=== PATIENT | female | born 1985 | race Caucasian/White ===

== ENCOUNTER → 2018-07-31 | Outpatient (CLI) | payer OTHER | LOC: SUN.DIA 11:47 | DX: O24.419 Gestational diabetes mellitus in pregnancy, unspecified control (principal); Z71.3 Dietary counseling and surveillance | CPT/HCPCS: G0108 ==

== ENCOUNTER → 2018-08-14 | Outpatient (CLI) | payer OTHER | LOC: SUN.DIA 08:56 | DX: O24.419 Gestational diabetes mellitus in pregnancy, unspecified control (principal); Z3A.32 32 weeks gestation of pregnancy | CPT/HCPCS: G0108 ==

== ENCOUNTER 2018-09-14 12:07 | Outpatient (CLI) | payer OTHER ==
[~2018-09-14] VITALS: Ht 157.5 cm; Wt 94.1 kg
[2018-09-14] VITALS (7 sets, daily range): BP systolic 120–138; BP diastolic 63–92; PULSE 78–103; TEMP 98.3
--- NOTE | 2018-09-14 12:30 | NUR ---
Patient ambulatory to L[facility]5 with with c/o increased blood pressures at home. She is a G1 at 36.3 weeks gestation who is GDM. She states that her blood sugars have been well controlled with diet and that she is no longer required to check her blood sugar. She denies leaking of fluid or vaginal bleeding and states that baby has been active. Patient changed into gown, wedged left. EFMs explained and applied. FHR 130 bpm with minimal variability, FHR difficult to trace and this nurse remains at bedside adjusting EFM. No CTX per toco or patient reports. Blood pressure: 138/92, with a repeat BP: 127/69. Patient denies headache or visual disturbances. Mild swelling noted to BLE. Plan of care reviewed. Dr. Donnelly on unit and updated.
[2018-09-14] MEDS ORDERED: LEXAPRO 10MG10 MG PO (12:49)
[2018-09-14] MEDS ORDERED: LEVOXYL0.112 MG PO (12:49)
[2018-09-14] MEDS ORDERED: ZANTAC 7575 MG PO (12:49)
[2018-09-14] MEDS ORDERED: NIFEREX TABLET1 EACH PO (12:50)
[2018-09-14] MEDS ORDERED: PRENATAL (12:50)
[2018-09-14 13:08] LABS: BASO % 0.2 % (0.0-2.0); EOS # 0.2 (0.0-0.7); EOS % 1.6 % (0-4.0); GRAN # 6.7 (1.4-6.5); GRAN % 72.8 % (42.2-75.2); HEMOGLOBIN 10.4 g/dl (12.5-16.0); LYMPH # 1.7 (1.2-3.4); LYMPH % 18.2 % (20.0-51.0); MEAN CELL VOLUME 83 fl (80.0-100.0); MEAN CORPUSCULAR HEMOGLOBIN 27 pg (27.0-31.0); MEAN CORPUSCULAR HGB CONC 33 g/dl (33.0-37.0); MEAN PLATELET VOLUME 11.4 fl (7.4-10.4); MONO # 0.6 (0.1-0.6); MONO % 6.2 % (1.7-9.3); PLATELET COUNT 203 K/mm3 (130-400); RED BLOOD COUNT 3.86 M/mm3 (4.10-5.30); REDCELL DISTRIBUTION WIDTH-CV 14.7 % (11.5-14.5)
[2018-09-14 13:18] LABS: ALANINE AMINOTRANSFERASE < 6 U/L (9-52); ALBUMIN 3.2 gm/dL (3.5-5.0); ALKALINE PHOSPHATASE 171 U/L (50-136); ANION GAP 8 mmol/L (7-16); AST,SGOT 17 U/L (15-37); BILIRUBIN,TOTAL 0.2 mg/dL (0.0-1.0); BLOOD UREA NITROGEN 10 mg/dL (7-17); CALCIUM 9.1 mg/dL (8.4-10.2); CARBON DIOXIDE 21 mmol/L (22-30); CHLORIDE 107 mmol/L (98-107); CREATININE, serum 0.53 (0.52-1.25); GLUCOSE 85 mg/dL (74-106); POTASSIUM 4.2 mmol/L (3.4-5.0); SODIUM 135 mmol/L (137-145); TOTAL PROTEIN 6.4 gm/dL (6.4-8.2)
--- NOTE | 2018-09-14 14:30 | NUR ---
1410 blood pressures WNL. NST reactive. Dr. Donnelly called and updated and orders to discharge home given. 1420 Discharge instructions reviewed with patient and spouse, including scheduled for this , September 19. Questions answered. 1430 Patient discharged home.
== END 2018-09-14 14:30 | disposition home or self-care (01) ==
LOC: LDRO 12:07 → LDR 12:40 → LDRO 14:30 → LDR 14:30
PROVIDERS: Obstetrics & Gynecology
DX: O13.3 Gestational [pregnancy-induced] hypertension without significant proteinuria, third trimester (principal); Z3A.36 36 weeks gestation of pregnancy
CPT/HCPCS: OP

== ENCOUNTER 2018-09-19 05:26 | Inpatient (IN) | payer OTHER ==
[~2018-09-19] VITALS: Ht 156.2 cm; Wt 95.5 kg
[2018-09-19] VITALS (17 sets, daily range): BP systolic 108–150; BP diastolic 65–87; PULSE 77–98; TEMP 97.5–98.3
[~2018-09-19 05:26] MED LIST: LEVOXYL0.112 MG PO; LEXAPRO 10MG10 MG PO; NIFEREX TABLET1 EACH PO; PRENATAL; ZANTAC 7575 MG PO
--- NOTE | 2018-09-19 06:00 | NUR ---
0578- Patient ambulatory to 209 with and electroencephalograph technician. Patient and oriented to room. Patient into restroom to change into gown. Patient back into bed. EFM and TOCO on and tracing. Patient denies LOF, bleeding, or spotting. Patient denies contractions. IV started. LR fluid bolus infusing into RH. Labs drawn and sent. Consents signed. Questions asked and answered. 0615- Report given to CRISTOBAL Francois.
[2018-09-19 06:30] LABS: BASO % 0.4 % (0.0-2.0); EOS # 0.1 (0.0-0.7); EOS % 1.8 % (0-4.0); GRAN # 5.2 (1.4-6.5); GRAN % 65.5 % (42.2-75.2); HEMOGLOBIN 10.9 g/dl (12.5-16.0); LYMPH % 25.7 % (20.0-51.0); MEAN CELL VOLUME 83 fl (80.0-100.0); MEAN CORPUSCULAR HEMOGLOBIN 27 pg (27.0-31.0); MEAN CORPUSCULAR HGB CONC 32 g/dl (33.0-37.0); MEAN PLATELET VOLUME 11.9 fl (7.4-10.4); MONO # 0.5 (0.1-0.6); MONO % 5.8 % (1.7-9.3); PLATELET COUNT 219 K/mm3 (130-400); RED BLOOD COUNT 4.04 M/mm3 (4.10-5.30); REDCELL DISTRIBUTION WIDTH-CV 14.7 % (11.5-14.5)
[2018-09-19 06:34] LABS: HEMATOCRIT 33.7 % (37.0-47.0)
--- NOTE | 2018-09-19 07:20 | NUR ---
Patient ambulatory to OR at this time.
--- NOTE | 2018-09-19 08:30 | NUR ---
Patient into PACU via bed. This RN remains at bedside.
--- NOTE | 2018-09-19 09:00 | NUR ---
Patient to Room 209. Plan of care discussed, questions answered. Juice and crackers provided. Denies pain or nausea at this time. Call light within reach.
--- NOTE | 2018-09-19 11:05 | NUR ---
LC to room to assist , staff nurse states baby eager but not getting nipple pulled into mouth. LC notes pt's right nipple inverts with compression of areola when trying to get more breast into his mouth. Nipple shield placed because of inversion and infant being eager. continues to have good effort but still only takes the initial burst of sucks then pulls off. remains on pt's chest [id number], with his mouth over the nipple, more kissing from time to time. Discussed frequency of feedings and typical lenght of feedings. Pt getting tired and pain increasing, anticipate follow up at another opportunity. Family at bedside during teaching.
--- NOTE | 2018-09-19 14:30 | NUR ---
Patient up to bathroom without difficulty. Hernandez catheter discontinued. Pericare performed. Underwear and peripad in place. Patient puts own robe on. Need for 3 measured voids and normal lochia parameters discussed. Patient to nursery via wheelchair to visit infant.
[2018-09-20 02:45] VITALS: BP 144/80; PULSE 109; TEMP 98.1
[2018-09-20 08:15] VITALS: BP 151/92; PULSE 115; TEMP 98
--- NOTE | 2018-09-20 10:26 | NUR ---
Initial visit; Parents thanked Studio Data Analyst for offering congratulations and God's blessings for the of their son. Studio Data Analyst thanked family for choosing [facility].
[2018-09-20 16:45] VITALS: BP 135/70; PULSE 104; TEMP 97.6
[2018-09-20 21:50] VITALS: BP 130/70; PULSE 100; TEMP 98.2
[2018-09-21 07:30] VITALS: BP 144/77; PULSE 99; TEMP 97.3
[2018-09-21 16:00] VITALS: BP 137/80; PULSE 91; TEMP 97.9
[2018-09-21 19:30] VITALS: BP 133/66; PULSE 93; TEMP 97.8
[2018-09-22 07:25] VITALS: BP 142/92; PULSE 88; TEMP 98.1
[2018-09-22] MEDS ORDERED: MOTRIN 800800 MG/TAB PO (08:51)
[2018-09-22] MEDS ORDERED: PERCOCET 325 MG1 TA2 PO (08:52)
== END 2018-09-22 11:25 | disposition home or self-care (01) | DRG 787 ==
LOC: OB 05:26 → LDR 06:45 → OB 09-22 11:25
PROVIDERS: ADMIT Obstetrics & Gynecology
PROC: 10D00Z1 Extraction of Products of Conception, Low, Open Approach (ICD-10-PCS; principal; 2018-09-19)
DX: O14.94 Unspecified pre-eclampsia, complicating childbirth (principal); O33.0 Maternal care for disproportion due to deformity of maternal pelvic bones; Z3A.37 37 weeks gestation of pregnancy; Z37.0 Single live birth; O99.284 Endocrine, nutritional and metabolic diseases complicating childbirth; E03.9 Hypothyroidism, unspecified; O99.62 Diseases of the digestive system complicating childbirth; K21.9 Gastro-esophageal reflux disease without esophagitis; O24.420 Gestational diabetes mellitus in childbirth, diet controlled; Z87.891 Personal history of nicotine dependence; O36.63X0 Maternal care for excessive fetal growth, third trimester, not applicable or unspecified
CPT/HCPCS: J0690; J1885; J2270; J2370; J2405; J2590; J7120

== ENCOUNTER → 2018-09-26 | Outpatient (CLI) | payer OTHER ==
[~2018-09-26] MED LIST changes: +MOTRIN 800800 MG/TAB PO; +PERCOCET 325 MG1 TA2 PO
--- NOTE | 2018-09-26 14:43 | NUR ---
Pt, Juliane Costa presents for outpatient consult with one week old baby boy, Kenny Costa. She is accompanied by her mother. Kenny was born by c/section at 37 weeks gestation because of pt's elevated blood pressure. His weight was 8#7.5oz (3840 gms). Discharge weight was 7#12oz (3515 gms). This LC worked with this couplet during their hospital stay. Kenny had latch difficulty and has been using a nipple shield. SNS was used during the hospital stay as well. Today Kenny weighs 7#9.8oz (3454 gms), for a loss of 10% from . Pt reports this is less than yesterday in Dr. Ledbetter's office. Pt reports 5 feedings in the last 24 hours, stating she has difficulty waking him for feedings and ends up with 5 hours between feedings. He has received about 3oz EBM/formula supplement in the last 24 hours, and has had 2-3 BMs and 6 voids in the same time frame. Pt does not pump regularly. Pt and LC attempt to latch Kenny without the nipple shield, but he does not latch well. After nursing bilaterally with the nipple shield he has a total gain of 18 gms. He is supplemented with 2oz formula by bottle and tolerates it well. POC: 3-step feeding plan with offering the breast each feeding, limit time to active nursing. Supplement 2-3 oz EBM or formula after, pump after each feeding x15 minutes. Pt verbalizes understanding of 3-step plan, and to feed at 3 hours by bottle if she cannot get him to wake well enough to breastfeed to ensure at least 8 feedings daily. Pt also provided handouts with additional suggestions to increase milks supply. F/U: One week with this LC. Pt verbalizes understanding of feeding plan, questions invited and answered.
== END ==
LOC: LAC 12:53
DX: Z39.1 Encounter for care and examination of lactating mother (principal); Z71.89 Other specified counseling

== ENCOUNTER 2020-05-24 12:42 | Outpatient (CLI) | payer OTHER ==
[~2020-05-24] VITALS: Ht 157.5 cm; Wt 89.5 kg
--- NOTE | 2020-05-24 12:10 | NUR ---
Patient arrives ambulatory with spouse with concerns of possible SROM at 0915. Patient denies contractions or vaginal bleeding and reports normal movement. Patient changes into gown, EFM explained and placed. Amniotrace negative. SVE closed/thick/high and no fluid noted on exam. Patient repositioned WL. VSS. Assessment completed by Nika Gregg RN. See physician notification.
[2020-05-24 12:19] VITALS: BP 115/74; PULSE 96; TEMP 98.1
--- NOTE | 2020-05-24 12:46 | NUR ---
Patient denies contractions or cramping.
[2020-05-24 12:50] VITALS: BP 115/74; PULSE 96; TEMP 98.2
--- NOTE | 2020-05-24 13:01 | NUR ---
1300- Patient given discharge instructions. Reviewed labor precautions and kick counts. Denies questions. Leaves ambulatory with spouse.
== END 2020-05-24 13:00 | disposition home or self-care (01) ==
LOC: LDRO 12:42
DX: O26.893 Other specified pregnancy related conditions, third trimester (principal); Z3A.34 34 weeks gestation of pregnancy

== ENCOUNTER 2020-06-22 06:01 | Inpatient (IN) | payer OTHER ==
[~2020-06-22] VITALS: Ht 157.5 cm; Wt 90.5 kg
[2020-06-22] VITALS (16 sets, daily range): BP systolic 78–136; BP diastolic 45–86; PULSE 79–104; TEMP 97.8–97.9
[2020-06-22 07:04] LABS: BASO % 0.2 % (0.0-2.0); EOS # 0.1 (0.0-0.7); EOS % 0.9 % (0-4.0); GRAN # 6.6 (1.4-6.5); HEMOGLOBIN 11.3 g/dl (12.5-16.0); LYMPH # 1.8 (1.2-3.4); LYMPH % 20.2 % (20.0-51.0); MEAN CELL VOLUME 80 fl (80.0-100.0); MEAN CORPUSCULAR HEMOGLOBIN 27 pg (27.0-31.0); MEAN CORPUSCULAR HGB CONC 34 g/dl (33.0-37.0); MEAN PLATELET VOLUME 10.8 fl (7.4-10.4); MONO # 0.6 (0.1-0.6); PLATELET COUNT 247 K/mm3 (130-400); REDCELL DISTRIBUTION WIDTH-CV 15.1 % (11.5-14.5)
[2020-06-22 07:05] LABS: HEMATOCRIT 33.5 % (37.0-47.0)
--- NOTE | 2020-06-22 08:35 | NUR ---
To pacu via bed with this nurse and anesthesia. Monitors on, denies any pain at this time. Report given by anesthesia.
--- NOTE | 2020-06-22 08:50 | NUR ---
Baby brought in, skin to skin with mom.
--- NOTE | 2020-06-22 09:05 | NUR ---
Dismissed to room 210 with baby in arms.
--- NOTE | 2020-06-22 09:15 | NUR ---
To room 210 via bed with this nurse and spouse. Alert, stable. Nibp on every fifteen minutes. Denies any pain or discomfort at this time. Holds baby lovingly.
--- NOTE | 2020-06-22 09:45 | NUR ---
Rests in bed, alert. Blood pressure 78/37. Rechecked 78/60. Fluid bolus started with lactated ringers. Blood pressure up to 88/50. Will continue to monitor in room.
--- NOTE | 2020-06-22 11:15 | NUR ---
Rests in bed, alert. Pad changed and louise care given. Denies any pain or discomfort at this time.
[2020-06-23 01:45] VITALS: BP 114/74; PULSE 90; TEMP 97.7
[2020-06-23 05:30] VITALS: BP 114/71; PULSE 91; TEMP 97.5
[2020-06-23] MEDS ORDERED: MOTRIN 800800 MG/TAB PO (07:48)
[2020-06-23] MEDS ORDERED: PERCOCET 325 MG1 TA2 PO (07:49)
[2020-06-23 07:50] VITALS: BP 121/73; PULSE 99; TEMP 97.4
--- NOTE | 2020-06-23 10:24 | NUR ---
Initial visit attempt; Patient out of room, Technician'S Helper left card of congratulations and God's blessings for the of their son and information regarding the availability of [facility] at [facility].
[2020-06-23 17:07] VITALS: BP 127/76; PULSE 105; TEMP 97.9
[2020-06-23 22:00] VITALS: BP 133/84; PULSE 108; TEMP 98.2
[2020-06-24 07:00] VITALS: BP 132/77; PULSE 98; TEMP 97.7
--- NOTE | 2020-06-24 09:06 | NUR ---
Follow-up visit; Patient thanked Citrus Fruit Packer for offering congratulations and God's blessings for the of her son. Citrus Fruit Packer thanked patient for choosing [facility].
[2020-06-24 15:38] VITALS: BP 129/78; PULSE 80; TEMP 98.1
[2020-06-24 23:05] VITALS: BP 135/83; PULSE 96; TEMP 98.3
[2020-06-25 07:47] VITALS: BP 121/72; PULSE 99; TEMP 97.8
== END 2020-06-25 14:35 | disposition home or self-care (01) | DRG 788 ==
LOC: OB 06:01
PROVIDERS: ADMIT Obstetrics & Gynecology
PROC: 10D00Z1 Extraction of Products of Conception, Low, Open Approach (ICD-10-PCS; principal; 2020-06-22)
DX: O34.211 Maternal care for low transverse scar from previous cesarean delivery (principal); O99.62 Diseases of the digestive system complicating childbirth; O99.344 Other mental disorders complicating childbirth; F41.9 Anxiety disorder, unspecified; K21.9 Gastro-esophageal reflux disease without esophagitis; E03.9 Hypothyroidism, unspecified; O99.284 Endocrine, nutritional and metabolic diseases complicating childbirth; O24.420 Gestational diabetes mellitus in childbirth, diet controlled; K66.0 Peritoneal adhesions (postprocedural) (postinfection); Z3A.39 39 weeks gestation of pregnancy; Z37.0 Single live birth
CPT/HCPCS: J0690; J1885; J2175; J2370; J2405; J2550; J2590; J7120